=== PATIENT | female | born 1990 | race Caucasian/White ===

== ENCOUNTER 2024-02-10 02:05 | Emergency (ER) | payer MEDICAID ==
[~2024-02-10] VITALS: Ht 162.6 cm; Wt 73.0 kg
[2024-02-10 02:09] VITALS: O2SAT 98
[2024-02-10 03:26] VITALS: TEMP 37.22520; O2SAT 99
[2024-02-10] MEDS ORDERED: NAPR-681 PO (05:03)
[2024-02-10] MEDS ORDERED: AMOX1TAB16 MT (05:03)
[2024-02-10] MEDS ORDERED: ONDA4TAB50 MT (05:05)
[2024-02-10 05:55] VITALS: BP 118/74; PULSE 92; RESP 16
[2024-02-10] MEDS: KETOROLAC 30MG/ML VIAL IM NR (05:55)
[2024-02-10] MEDS: PENICILLIN G BENZATHINE 1,200,000 UNITS/2ML SYR IM NR (05:59)
== END 2024-02-10 06:00 | disposition home or self-care (01) ==
LOC: ER 02:05
DX: J02.9 Acute pharyngitis, unspecified (principal); K04.7 Periapical abscess without sinus
CPT/HCPCS: 99284; 96372; J0561; J1885